=== PATIENT | male | born 1945 | race Two or more races ===

== ENCOUNTER 2021-10-06 15:02 | Inpatient (IN) | payer MEDICARE, OTHER ==
[~2021-10-06] VITALS: Ht 170.2 cm; Wt 132.1 kg
[2021-10-06] MEDS ORDERED: SODIUM CHLORIDE 0.9% 1,000 ML IV ONE (15:15)
[2021-10-06 16:21] LABS: Basophils # (auto) 0.1 10 ^3/uL (0-0.2); Basophils % (auto) 0.8 % (0.0-2.0); Eosinophils # (auto) 0.1 10 ^3/uL (0-0.8); Eosinophils % (auto) 1.1 % (0.0-7.0); Hematocrit 45.2 % (41.0-53.0); Hemoglobin 16.2 g/dL (13.5-17.5); Lymphocytes # (auto) 1.9 10 ^3/uL (0.4-5.4); Lymphocytes % (auto) 17.3 % (10.0-50.0); Mean Corpuscular Hemoglobin 32.7 pg (28.0-32.0); Mean Corpuscular Hgb Conc. 35.8 g/dL (32.0-36.0); Mean Corpuscular Volume 91.2 fL (80.0-100.0); Monocytes # (auto) 1.3 10 ^3/uL (0-1.3); Monocytes % (auto) 11.4 % (0.0-12.0); Neutrophils # (auto) 7.6 10 ^3/uL (1.6-8.6); Neutrophils % (auto) 69.4 % (37.0-80.0); Red Blood Cells 4.96 10^6/uL (4.5-5.90); Red Cell Distribution Width 12.8 % (11.8-14.3)
[2021-10-06 16:36] LABS: INR 1.12 (0.9-1.15); Partial Thromboplastin Time 27.9 sec (23.6-33.0)
[2021-10-06 16:39] LABS: Albumin 3.5 g/dL (3.4-5.0); Anion Gap 6 (5-15); Blood Alcohol < 3.0 mg/dL (0-5); Blood Urea Nitrogen 49 mg/dL (7-18); Calcium 8.9 mg/dL (8.5-10.1); Carbon Dioxide 27 mmol/L (21-32); Chloride 104 mmol/L (98-107); Glucose 215 mg/dL (74-106); Potassium 3.6 mmol/L (3.5-5.1); Sodium 137 mmol/L (136-145)
[2021-10-06 16:43] LABS: Alanine Aminotransferase 31 U/L (16-61); Alkaline Phosphatase 75 U/L (45-117); Aspartate Aminotransferase 23 U/L (15-37); BUN/Creatinine Ratio 19.4; Bilirubin, Total 1.5 mg/dL (0.2-1.0); GFR African American 32 mL/min; GFR Non-African American 26 mL/min; Lactic Acid w/Reflex 2.1 mmol/L (0.4-2.0); Total Protein 6.5 g/dL (6.4-8.2)
[2021-10-06] MEDS ORDERED: ACETAMINOPHEN 325 MG TAB PO ONE ×2 (17:23→17:30)
[2021-10-06] MEDS ORDERED: AZITHROMYCIN 500MG/ 250ML 250 ML IV ONE (17:45)
[2021-10-06] MEDS ORDERED: cefTRIAXone 1GM/50ML D5W 50 ML IV ONE (17:45)
[2021-10-06 21:28] LABS: Alcohol, Urine < 3.0 mg/dL (0-10); Amphetamine Screen, Urine NEGATIVE (NEGATIVE); Barbiturate Scree,Urine NEGATIVE (NEGATIVE); Benzodiazephine Screen, Urine NEGATIVE (NEGATIVE); Cannabinoid Screen, Urine NEGATIVE (NEGATIVE); Cocaine Screen, Urine NEGATIVE (NEGATIVE); Opiate Scree,Urine NEGATIVE (NEGATIVE); Phencyclidine Screen, Urine NEGATIVE (NEGATIVE)
[2021-10-06 21:32] LABS: Urine Bacteria FEW /hpf (None Seen); Urine Blood 3+ /uL (Negative); Urine Budding Yeast FEW /hpf (None Seen); Urine Hyaline Cast FEW /lpf (0 - 2); Urine Mucus FEW (None Seen); Urine Specific Gravity 1.024 (1.001-1.035); Urine WBC 39 /hpf (0 - 3)
[2021-10-07] VITALS (7 sets, daily range): BP systolic 111–147; BP diastolic 64–83
[2021-10-07] MEDS ORDERED: MORPHINE SULFATE 4 MG/ML SYR/VIAL IV PRN (01:00)
[2021-10-07] MEDS ORDERED: ACETAMINOPHEN 325 MG TAB PO PRN (01:00)
[2021-10-07] MEDS ORDERED: ONDANSETRON HCL 4 MG/2 ML VIAL IV PRN (01:00)
[2021-10-07] MEDS: SODIUM CHLORIDE 0.9% 1,000 ML IV SCH ×3 (03:12→18:00)
[2021-10-07] MEDS ORDERED: ASPI-543 PO (05:05)
[2021-10-07] MEDS: HEPARIN SODIUM (PORCINE) 5000 UNITS/ML 1ML VIAL SC SCH ×2 (05:45→15:41)
[2021-10-07] MEDS: cefTRIAXone 1GM/50ML D5W 50 ML IV SCH (10:55)
[2021-10-07] MEDS: PANTOPRAZOLE 40 MG TAB PO SCH (10:56)
[2021-10-07] MEDS: amLODIPine BESYLATE 5 MG TAB PO SCH (10:58)
[2021-10-07 11:32] LABS: Basophils # (auto) 0.1 10 ^3/uL (0-0.2); Basophils % (auto) 0.8 % (0.0-2.0); Eosinophils # (auto) 0.2 10 ^3/uL (0-0.8); Eosinophils % (auto) 1.7 % (0.0-7.0); Hematocrit 43.7 % (41.0-53.0); Hemoglobin 15.3 g/dL (13.5-17.5); Lymphocytes % (auto) 17.7 % (10.0-50.0); Mean Corpuscular Hemoglobin 31.9 pg (28.0-32.0); Mean Corpuscular Hgb Conc. 34.9 g/dL (32.0-36.0); Mean Corpuscular Volume 91.5 fL (80.0-100.0); Monocytes # (auto) 1.2 10 ^3/uL (0-1.3); Monocytes % (auto) 10.9 % (0.0-12.0); Neutrophils # (auto) 7.6 10 ^3/uL (1.6-8.6); Neutrophils % (auto) 68.9 % (37.0-80.0); Red Blood Cells 4.78 10^6/uL (4.5-5.90); Red Cell Distribution Width 12.7 % (11.8-14.3)
[2021-10-07 11:53] LABS: Potassium 3.5 mmol/L (3.5-5.1)
[2021-10-07 12:11] LABS: Albumin 3.1 g/dL (3.4-5.0); BUN/Creatinine Ratio 22.3; Calcium 8.6 mg/dL (8.5-10.1); Total Protein 6.4 g/dL (6.4-8.2)
[2021-10-07] MEDS: CARBAMIDE PEROXIDE 6.5% OTIC(EAR) SOLN 15ML EACH EAR SCH (22:00)
[2021-10-08] MEDS: SODIUM CHLORIDE 0.9% 1,000 ML IV SCH ×3 (02:00→17:27)
[2021-10-08 05:00] VITALS: BP 136/78
[2021-10-08 08:17] VITALS: BP 185/89
[2021-10-08 08:27] VITALS: BP 161/78
[2021-10-08 08:41] LABS: Potassium 3.5 mmol/L (3.5-5.1)
[2021-10-08 08:54] LABS: BUN/Creatinine Ratio 19.6; Calcium 8.9 mg/dL (8.5-10.1)
[2021-10-08] MEDS: ENOXAPARIN SOD 40 MG/0.4 ML SYRINGE SC SCH (09:42)
[2021-10-08] MEDS: PANTOPRAZOLE 40 MG TAB PO SCH (09:42)
[2021-10-08] MEDS: cefTRIAXone 1GM/50ML D5W 50 ML IV SCH (09:42)
[2021-10-08] MEDS: amLODIPine BESYLATE 5 MG TAB PO SCH (09:43)
[2021-10-08] MEDS: CARBAMIDE PEROXIDE 6.5% OTIC(EAR) SOLN 15ML EACH EAR SCH ×2 (10:00→22:23)
[2021-10-08 12:02] VITALS: BP 154/85
[2021-10-08 17:08] VITALS: BP 138/69
[2021-10-08 22:00] VITALS: BP 144/55
[2021-10-08] MEDS: METOPROLOL TARTRATE 25 MG TAB PO SCH (22:23)
[2021-10-09] MEDS: SODIUM CHLORIDE 0.9% 1,000 ML IV SCH ×3 (03:00→19:40)
[2021-10-09 05:00] VITALS: BP 150/78
[2021-10-09 09:00] VITALS: BP 129/72
[2021-10-09] MEDS: CARBAMIDE PEROXIDE 6.5% OTIC(EAR) SOLN 15ML EACH EAR SCH ×2 (10:22→21:50)
[2021-10-09] MEDS: ENOXAPARIN SOD 40 MG/0.4 ML SYRINGE SC SCH (10:22)
[2021-10-09] MEDS: amLODIPine BESYLATE 5 MG TAB PO SCH (10:24)
[2021-10-09] MEDS: METOPROLOL TARTRATE 25 MG TAB PO SCH ×2 (10:25→21:50)
[2021-10-09] MEDS: cefTRIAXone 1GM/50ML D5W 50 ML IV SCH (10:25)
[2021-10-09] MEDS: PANTOPRAZOLE 40 MG TAB PO SCH (10:25)
[2021-10-09 13:00] VITALS: BP 126/66
[2021-10-09 15:37] LABS: BUN/Creatinine Ratio 15.2; Calcium 8.4 mg/dL (8.5-10.1); Potassium 3.5 mmol/L (3.5-5.1)
[2021-10-09 17:00] VITALS: BP 161/72
[2021-10-09 21:42] VITALS: BP 154/72
[2021-10-10 05:00] VITALS: BP 136/82
[2021-10-10] MEDS: SODIUM CHLORIDE 0.9% 1,000 ML IV SCH (05:48)
[2021-10-10 09:00] VITALS: BP 173/95
[2021-10-10] MEDS: CARBAMIDE PEROXIDE 6.5% OTIC(EAR) SOLN 15ML EACH EAR SCH (09:28)
[2021-10-10] MEDS: ENOXAPARIN SOD 40 MG/0.4 ML SYRINGE SC SCH (09:29)
[2021-10-10] MEDS: cefTRIAXone 1GM/50ML D5W 50 ML IV SCH (09:29)
[2021-10-10] MEDS: METOPROLOL TARTRATE 25 MG TAB PO SCH (09:30)
[2021-10-10] MEDS: PANTOPRAZOLE 40 MG TAB PO SCH (09:30)
[2021-10-10] MEDS: amLODIPine BESYLATE 5 MG TAB PO SCH (09:31)
[2021-10-10 10:40] VITALS: BP 138/74
[2021-10-10 11:44] LABS: Folate (Folic Acid) 4.22 ng/mL (5.38-24)
[2021-10-10 12:30] VITALS: BP 117/78
[2021-10-10] MEDS ORDERED: MET25T PO (13:16)
[2021-10-10] MEDS ORDERED: AML5T PO (13:16)
[2021-10-10] MEDS ORDERED: TAM04C PO (13:17)
[2021-10-10 17:00] VITALS: BP 142/90
== END 2021-10-10 19:52 | disposition home health service (06) | DRG 698 ==
LOC: ER 15:08 → OVERFLOW 10-07 00:58 → WEST WING 10-07 02:25
PROVIDERS: ADMIT Internal Medicine; ATTEND Hospitalist
DX: N13.9 Obstructive and reflux uropathy, unspecified (principal); J18.9 Pneumonia, unspecified organism; N17.9 Acute kidney failure, unspecified; I13.0 Hypertensive heart and chronic kidney disease with heart failure and stage 1 through stage 4 chronic kidney disease, or unspecified chronic kidney disease; Z68.42 Body mass index [BMI] 45.0-49.9, adult; N39.0 Urinary tract infection, site not specified; N18.30 Chronic kidney disease, stage 3 unspecified; E66.9 Obesity, unspecified; E11.22 Type 2 diabetes mellitus with diabetic chronic kidney disease; E11.65 Type 2 diabetes mellitus with hyperglycemia; R31.29 Other microscopic hematuria; E86.9 Volume depletion, unspecified; H91.90 Unspecified hearing loss, unspecified ear; R29.6 Repeated falls; R55 Syncope and collapse; I50.9 Heart failure, unspecified; R19.7 Diarrhea, unspecified; Z20.822 Contact with and (suspected) exposure to COVID-19; Z82.49 Family history of ischemic heart disease and other diseases of the circulatory system
CPT/HCPCS: 36415; 70450; 71045; 76775; 80048; 80053; 80307; 80320; 81001; 82607; 82746; 83036; 83605; 83880; 84443; 84484; 85025; 85610; 85730; 87040; 87081; 87086; 93306; 93886; 96361; 96365; 96368; 97163; G0378; J0696